=== PATIENT | male | born 1960 | race Caucasian/White ===

== ENCOUNTER 2020-08-19 17:47 | Inpatient (IN) | payer OTHER ==
[~2020-08-19] VITALS: Ht 182.9 cm; Wt 87.5 kg
[~2020-08-19 17:47] MED LIST: AUGMENTIN 875-1 EACH PO
[2020-08-19 18:20] LABS: HEMOGLOBIN 16.6 gm/dl (14.0-17.5); RED BLOOD COUNT 5.19 M/UL (4.20-5.50)
[2020-08-19 18:50] LABS: BUN/CREATININE RATIO 22 (0-10)
[2020-08-20 04:22] LABS: WHITE BLOOD COUNT 11.4 K/UL (4.5-11.0)
[2020-08-20 04:43] LABS: RED BLOOD COUNT 4.48 M/UL (4.20-5.50)
[2020-08-20] MEDS ORDERED: NABUMETONE500 MG PO (14:45)
[2020-08-20] MEDS ORDERED: OMEPRAZOLE20 M1 PO (14:45)
[2020-08-20] MEDS ORDERED: URSODIOL300 MG PO (14:46)
[2020-08-21 05:01] LABS: BUN/CREATININE RATIO 46 (0-10)
[2020-08-21 05:28] LABS: HEMOGLOBIN 12.4 gm/dl (14.0-17.5)
[2020-08-21 05:29] LABS: RED BLOOD COUNT 4.03 M/UL (4.20-5.50); WHITE BLOOD COUNT 16.7 K/UL (4.5-11.0)
--- NOTE | 2020-08-21 05:32 | NUR ---
PER MD, PT TO WALK TO REST ROOM AND OBTAIN RESTING HR/BP AND STANDING/WALKING HR/BP. UPON SITTING AND WALKING THE PATIENT STATED HE WAS DIZZY. SITTING BP AND HR 75HR AND 137/78(86). STANDING HR 82 AND BP 142/89 (100) WALKING HR 96
== END 2020-08-21 23:19 | disposition expired | DRG 871 ==
LOC: ER1 17:47 → PROG CARE 20:30 → CDU 20:30 → PROG CARE 08-20 21:11 → 2 EAST 08-21 21:32
PROVIDERS: Emergency Medicine; Internal Medicine; ADMIT Internal Medicine
PROC: 8E0ZXY6 Isolation (ICD-10-PCS; 2020-08-19)
PROC: 5A09457 Assistance with Respiratory Ventilation, 24-96 Consecutive Hours, Continuous Positive Airway Pressure (ICD-10-PCS; 2020-08-20)
PROC: XW13325 Transfusion of Convalescent Plasma (Nonautologous) into Peripheral Vein, Percutaneous Approach, New Technology Group 5 (ICD-10-PCS; 2020-08-20)
PROC: XW033E5 Introduction of Remdesivir Anti-infective into Peripheral Vein, Percutaneous Approach, New Technology Group 5 (ICD-10-PCS; 2020-08-20)
PROC: 0BH17EZ Insertion of Endotracheal Airway into Trachea, Via Natural or Artificial Opening (ICD-10-PCS; principal; 2020-08-21)
PROC: 5A1935Z Respiratory Ventilation, Less than 24 Consecutive Hours (ICD-10-PCS; 2020-08-21)
DX: A41.89 Other specified sepsis (principal); U07.1 COVID-19; G93.41 Metabolic encephalopathy; J96.01 Acute respiratory failure with hypoxia; N17.9 Acute kidney failure, unspecified; E87.1 Hypo-osmolality and hyponatremia; M62.82 Rhabdomyolysis; R65.20 Severe sepsis without septic shock; E87.6 Hypokalemia; K74.60 Unspecified cirrhosis of liver; R00.0 Tachycardia, unspecified; D72.829 Elevated white blood cell count, unspecified
CPT/HCPCS: 31500; 36415; 36600; 70450; 71045; 80053; 80202; 80307; 81001; 82140; 82550; 82553; 82803; 82962; 83605; 83690; 83735; 83874; 83880; 84100; 84439; 84443; 84484; 85025; 85027; 85610; 85730; 86900; 86901; 86927; 87040; 87086; 92950; 93005; 94002; 94660; 94760; 96365; 96366; 96367; 96368; 96372; 96375; 96376; 99285; G0480; J0171; J0330; J0456; J0461; J0696; J1100; J1650; J2001; J2185; J2704; J3370; J3480; J7030; J7050; J7070; U0002